=== PATIENT | female | born 1950 | race Caucasian/White ===

== ENCOUNTER → 2017-11-15 | Outpatient (CLI) | payer MEDICARE ==
--- NOTE | 2017-11-15 20:49 | MR ---
EXAMINATION TYPE: MR brain wo/w con DATE OF EXAM: 11/15/2017 COMPARISON: None HISTORY: Altered mental status /Visual changes CONTRAST: Performed utilizing 9 mL intravenous Gadavist gadolinium contrast. TECHNIQUE: Multiplanar, multiecho imaging on a 3.0 Tana magnet is performed through the brain. Stud y is performed within 24 hours of arrival to the hospital. The craniovertebral junction is normal. The pituitary is normal. Diffusion-weighted imaging is performed. No abnormal hyperintensity is present to suggest an acute i ntracranial infarct or acute ischemic change. There is hyperintensity within the brainstem. Periventricular white matter hyperintensity is present on FLAIR and T2-weighted images. This is partially confluent. On T2-weighted images there is a focus of hyperintensity within the left centrum semiovale. This is h ypointense on T1-weighted images and nonenhancing. A small lacunar infarct could be considered. No abnormal enhancement is evident. Ventricles and sulci are appropriate for the patient age. IMPRESSIONS: 1. Partially confluent Periventricular white matter and deep white matter hyperintensities compatible with chronic appearing microvascular ischemic change. 2. A tiny old lacunar infarct may be within the left centrum semiovale.
== END ==
LOC: RADMRIMAIN 17:53
PROVIDERS: ATTEND Family Medicine
DX: R90.89 Other abnormal findings on diagnostic imaging of central nervous system (principal); I67.82 Cerebral ischemia
CPT/HCPCS: 82565; 70553; 36415; A9581

== ENCOUNTER → 2018-04-06 | Outpatient (CLI) | payer MEDICARE ==
--- NOTE | 2018-04-09 13:14 | MM ---
Reason for exam: screening (asymptomatic). Last mammogram was performed 1 year and 5 months ago. History: Patient is postmenopausal. Physical Findings: A clinical breast exam by your physician is recommended on an annual basis and results should be correlated with mammographic findings. MG Screening Mammo w CAD Bilateral CC and MLO view(s) were taken. Prior study comparison: November 17, 2016, bilateral MG screening mammo w CAD. August 18, 2015, bilateral MG screening mammo w CAD. The breast tissue is almost entirely fat. Finding: There are typically benign round, diffuse/scattered calcifications in both breasts. No significant changes in finding since August 18, 2015 and November 17, 2016. ASSESSMENT: Benign, BI-RAD 2 RECOMMENDATION: Routine screening mammogram of both breasts in 1 year.
== END | disposition home or self-care (01) ==
LOC: RADMAMWWP 16:19
PROVIDERS: ATTEND Family Medicine
DX: Z12.31 Encounter for screening mammogram for malignant neoplasm of breast (principal)
CPT/HCPCS: 77067

== ENCOUNTER → 2020-09-29 | Outpatient (CLI) | payer MEDICARE ==
[~2020-09-29] MED LIST: REGADENOSON 0.4 MG/5 ML SYRINGE IV PRN
--- NOTE | 2020-09-29 16:05 | EST ---
EXERCISE STRESS DATE OF SERVICE: 09/29/20 AGE: 70 SEX: F HT: 5'5" WT: 220 lbs. PROTOCOL: Lexiscan STAGE: NA DURATION OF EXERCISE: NA HEART RATE REST: 65 BLOOD PRESSURE REST: 138/62 MAXIMUM HEART RATE ACHIEVED: 83 MAXIMUM BLOOD PRESSURE: 142/57 85% MPHR: 128 100% MPHR: 150 METS: NA RESULTS: Baseline rhythm is sinus mechanism, rate of 65, normal axis and intervals, nonspecific ST-T wave changes. Baseline blood pressure 138/62 mmHg. The patient received an injection of Lexiscan. Electrocardiograph monitoring revealed no evidence of diagnostic ischemic ST deviation. Cardiolite was injected per protocol. CONCLUSION: 1. Nondiagnostic electrocardiograph stress testing. 2. Nuclear images will be reported separately. MMODL / IJN: [id number] /
== END | disposition home or self-care (01) ==
LOC: RADNMMAIN 07:59
PROVIDERS: ATTEND Family Medicine
DX: R07.9 Chest pain, unspecified (principal); I10 Essential (primary) hypertension
CPT/HCPCS: 93017; 78452; A9500; J2785

== ENCOUNTER → 2020-10-06 | Outpatient (CLI) | payer MEDICARE ==
[2020-10-06 13:33] VITALS: BP 165/98; PULSE 62; RESP 16; TEMP 98.4; BMI 37.5
--- NOTE | 2020-10-06 14:50 | P.BASOAP ---
Subjective Progress Note Date: 10/06/20 Principal diagnosis: Morbid obesity Patient returns for reevaluation. He hasn't been seen for quite some time. Patient is interested in increasing filled to her band. Notices decreased restriction. She is not sure how much is in the band. No nausea or vomiting. Objective - Vital Signs Vital signs: Vital Signs Temp 98.4 F 10/06/20 13:31 Pulse 62 10/06/20 13:31 Resp 16 10/06/20 13:31 BP 165/98 10/06/20 13:31 Pulse Ox Intake & Output 10/05/20 10/06/20 10/06/20 18:59 06:59 18:59 Weight 102.512 kg - Exam Abdomen: Soft, nontender, nondistended Assessment/Plan (1) Morbid obesity Narrative/Plan: Patient doing well at this time. Continue dietary and exercise regimen. Patient would like more fluid added to the band. Band was accessed sterilely. 7 mL was present. Will add 0.3 for a total of 7.3 mL. Plan: Date: 10/06/20 Initial Weight: 120.656 kg Initial BMI: 44.2 Current Weight: 102.512 kg Current BMI: 37.5 Type of Surgery: Total Volume in Band: Previous Volume: Volume Removed: Volume Added: Band Size:
== END | disposition home or self-care (01) ==
LOC: BARWHC3 13:03
PROVIDERS: ATTEND Surgery
DX: E66.01 Morbid (severe) obesity due to excess calories (principal); Z68.37 Body mass index [BMI] 37.0-37.9, adult
CPT/HCPCS: 99212

== ENCOUNTER → 2020-10-12 | Outpatient (CLI) | payer MEDICARE ==
[2020-10-12 16:10] LABS: HCT 40.3 % (34.0-46.0); HGB 13.3 gm/dL (11.4-16.0); MCH 30.8 pg (25.0-35.0); MCHC 33.1 g/dL (31.0-37.0); MCV 93.1 fL (80.0-100.0); Mean Platelet Volume 7.5; Platelet Count 359 k/uL (150-450); RBC 4.33 m/uL (3.80-5.40); RDW 14.6 % (11.5-15.5); WBC 6.2 k/uL (3.8-10.6)
[2020-10-12 16:21] LABS: Potassium 4.3 mmol/L (3.5-5.1)
== END | disposition home or self-care (01) ==
LOC: LABPAT 15:28
PROVIDERS: ATTEND Internal Medicine Interventional Cardiology
DX: Z01.812 Encounter for preprocedural laboratory examination (principal); R94.39 Abnormal result of other cardiovascular function study
CPT/HCPCS: 80051; 82565; 84520; 85027

== ENCOUNTER 2020-10-16 07:44 | Day surgery (SDC) | payer MEDICARE ==
[2020-10-13 08:12] VITALS: BMI 36.6
[~2020-10-16 07:44] MED LIST changes: +ALPRAZolam 0.25 MG TAB PO PRN; +ALPRAZolam 0.5 MG TAB PO PRN; +ASPIRIN 325 MG TAB PO ONE; +HEPARIN SODIUM,PORCINE 10,000 UNIT in SODIUM CHLORIDE 0.9% 1,000 ML IRRIGATION PRN; +HEPARIN SODIUM,PORCINE 2,500 UNIT in SODIUM CHLORIDE 0.9% 250 ML IRRIGATION PRN; +NITROGLYCERIN SL TABS 0.4 MG TAB SUBLINGUAL PRN; -REGADENOSON 0.4 MG/5 ML SYRINGE IV PRN; +SODIUM CHLORIDE 0.9% 1,000 ML in EMPTY BAG 1 BAG IV ONE
[2020-10-16 08:14] VITALS: RESP 16; TEMP 98.3
[2020-10-16] MEDS ORDERED: MIDAZOLAM 2 MG/2 ML VIAL IVP ONE (09:31)
[2020-10-16] MEDS ORDERED: fentaNYL (PF) 50 MCG/ML 2 ML AMP IVP ONE (09:31)
[2020-10-16] MEDS ORDERED: LIDOCAINE 1% INJ 10MG/ML (20 ML MDV) SQ ONE (09:36)
[2020-10-16] MEDS ORDERED: VERAPAMIL SYRINGE (5 MG/10 ML) INTRAARTER ONE (09:38)
[2020-10-16] MEDS ORDERED: HEPARIN SODIUM 1,000 UN/ML (10ML VL) IV ONE (09:42)
[2020-10-16] MEDS ORDERED: IOPAMIDOL-370 125ML BTL INJ ONE (09:47)
[2020-10-16] MEDS ORDERED: RX INFO: IV CONTRAST WAS GIVEN 1 EACH MISC MISCELLANE PRN (10:02)
[2020-10-16] MEDS ORDERED: SODIUM CHLORIDE 0.9% 1,000 ML IV SCH (10:15)
--- NOTE | 2020-10-16 10:38 | P.CARDCATH ---
Date of Procedure: 10/16/20 Preoperative Diagnosis: Chest pain and shortness of breath Postoperative Diagnosis: Normal coronary arteries. Elevated end-diastolic pressure Procedure(s) Performed: Left heart catheterization with selective coronary arteriography and without left ventriculography Description of Procedure: HISTORY: This is a 70-year-old female who was referred by Dr. Muir for cardiac catheterization because of exertional chest pain and shortness of breath. CONSENT:I have discussed the risks, benefits and alternative therapies for the above-mentioned procedure and for both sedation/analgesia as well as necessary blood product administration, if indicated, as they pertain to this patient. The patient has indicated understanding and acceptance of the risks and procedures discussed. PROCEDURE: Patient was brought to the lab in a fasting state. Patient was given some IV sedation. The right wrist is infiltrated with lidocaine and right radial artery was entered using Seldinger technique. A 6-[place] catheter was left in place and selective coronary arteriography was performed. Patient tolerated the procedure well. TR band was applied for hemostasis. No immediate complications were noted and patient was transferred to [facility] in a stable condition Conscious Sedation: Versed 1mg Fentanyl 25 g Duration 14 minutes HEMODYNAMICS: . The aortic pressure is about 110/70. Left ventricle end- diastolic pressure is about 20. There was no gradient across the aortic valve SELECTIVE CORONARY ARTERIOGRAPHY: LEFT MAIN: Short and free of occlusive disease THE LEFT ANTERIOR DESCENDING CORONARY ARTERY: . Moderate caliber vessel which wraps around the apex. Gives moderate caliber diagonal and septal branches. The LAD and branches are free of occlusive disease THE LEFT CIRCUMFLEX AND IS CORONARY ARTERY: . This is a dominant vessel giving rise to PDA and also OM branches. Free of any occlusive disease THE RIGHT CORONARY ARTERY: . Non- dominant vessel. Free of occlusive disease LEFT VENTRICULOGRAPHY: Not performed FINAL IMPRESSION: . Normal coronary arteries. Elevated end-diastolic pressure PLAN: . Continue medical therapy and this factor modification PROGNOSIS:Good
[2020-10-16 15:21] VITALS: BP 127/57; PULSE 62
== END 2020-10-16 14:57 | disposition home or self-care (01) ==
LOC: CATHCVL 07:44
PROVIDERS: ATTEND Internal Medicine Cardiovascular Disease
DX: R07.9 Chest pain, unspecified (principal); R06.02 Shortness of breath
CPT/HCPCS: 93458; C1894; C1769; J2250; J2001; J3010; J1644; Q9967

== ENCOUNTER 2022-02-05 10:44 | Emergency (ER) | payer MEDICARE ==
[2022-02-05 10:52] VITALS: PULSE 98; TEMP 98.9
[2022-02-05] MEDS ORDERED: ALBUTEROL HFA INHALER INHALATION STA (11:24)
--- NOTE | 2022-02-05 11:49 | XR ---
EXAMINATION TYPE: XR chest 2V DATE OF EXAM: 02/05/2022 COMPARISON: NONE HISTORY: Shortness of breath TECHNIQUE: Frontal and lateral views of the chest are obtained. FINDINGS: Scattered senescent parenchymal changes noted. Hyperinflation compatible with COPD. No evidence for infiltrate. No evidence for atelectasis. Cardiomegaly with pulmonary venous congestion. No evidence for overt failure.. Mediastinal structures are stable and grossly unremarkable. No evidence for hilar prominence. Degenerative changes dorsal spine. IMPRESSION: 1. Cardiomegaly with pulmonary venous congestion. No evidence for overt failure..
[2022-02-05 11:51] VITALS: RESP 16
--- NOTE | 2022-02-05 13:47 | ED ---
URI HPI - General Chief Complaint: Upper Respiratory Infection Stated Complaint: fever Time Seen by Provider: 02/05/22 11:03 Source: patient Mode of arrival: ambulatory Limitations: no limitations - History of Present Illness Initial Comments: Patient is a 71-year-old female presenting with chief complaint of cough and subjective fever. Patient states that symptoms started yesterday. She did not check her temperature but states she felt very warm. She admits to congestion and some minor nausea. Admits to fatigue. No chest pain, difficulty breathing, abdominal pain, vomiting, headache, vision or hearing changes, neck pain or stiffness, palpitations, weakness. - Related Data Home Medications Medication Instructions Recorded Confirmed Aspirin 81 mg PO DAILY 07/18/13 10/16/20 Citalopram Hydrobromide 20 mg PO DAILY 07/18/13 10/16/20 [Citalopram HBr] Lisinopril 10 mg PO DAILY 07/18/13 10/16/20 lamoTRIgine 100 mg PO HS 07/18/13 10/16/20 QUEtiapine [SEROquel] 100 mg PO HS 10/08/20 10/16/20 Alendronate Sodium [Fosamax] 70 mg PO SA 10/13/20 10/16/20 Metoprolol Tartrate [Lopressor] 50 mg PO DAILY 10/13/20 10/16/20 Pantoprazole Sodium [Protonix] 40 mg PO DAILY 10/13/20 10/16/20 Rosuvastatin [Crestor] 20 mg PO DAILY 10/13/20 10/16/20 Sucralfate [Carafate] 1 gm PO BID 10/13/20 10/16/20 rOPINIRole HCL [Requip] 0.5 mg PO HS 10/13/20 10/16/20 Allergies Allergy/AdvReac Type Severity Reaction Status Date / Time No Known Allergies Allergy Verified 02/05/22 10:52 Review of Systems ROS Statement: Those systems with pertinent positive or pertinent negative responses have been documented in the HPI. ROS Other: All systems not noted in ROS Statement are negative. Past Medical History Past Medical History: Hypertension, Sleep Apnea/CPAP/BIPAP History of Any Multi-Drug Resistant Organisms: None Reported Past Surgical History: Bariatric Surgery, Cholecystectomy Additional Past Surgical History / Comment(s): lap band 2014 Past Anesthesia/Blood Transfusion Reactions: No Reported Reaction Past Psychological History: No Psychological Hx Reported Smoking Status: Never smoker, Unknown if ever smoked Past Alcohol Use History: None Reported Past Drug Use History: None Reported General Exam Limitations: no limitations General appearance: alert, in no apparent distress Head exam: Present: atraumatic, normocephalic, normal inspection Eye exam: Present: normal appearance, PERRL, EOMI. Absent: scleral icterus, conjunctival injection, periorbital swelling ENT exam: Present: normal exam, normal oropharynx, mucous membranes moist, TM's normal bilaterally Neck exam: Present: normal inspection, full ROM Respiratory exam: Present: normal lung sounds bilaterally. Absent: respiratory distress, wheezes, rales, rhonchi, stridor Cardiovascular Exam: Present: regular rate, normal rhythm, normal heart sounds. Absent: systolic murmur, diastolic murmur, rubs, gallop, clicks Neurological exam: Present: alert, oriented X3, CN II-XII intact Psychiatric exam: Present: normal affect, normal mood Skin exam: Present: warm, dry, intact, normal color. Absent: rash Course Vital Signs 02/05/22 02/05/22 02/05/22 10:49 11:50 13:50 Temperature 98.9 F 98.9 F Pulse Rate 98 98 Respiratory 18 16 16 Rate O2 Sat by Pulse 98 98 Oximetry Medical Decision Making - Medical Decision Making Patient is a 71-year-old female presenting with chief complaint of subjective fever, cough, and fatigue. Symptoms started yesterday. Patient has been taking Tylenol for her symptoms. On examination heart and lungs are clear to auscultation and there is normal HEENT exam. Patient tested positive for influenza A. Chest x-ray shows cardiomegaly with pulmonary venous congestion, there is no evidence of overt heart failure. This is confirmed by my inter pretation. I conveyed these findings to the patient, I expressed that we would need to do further testing including a BNP to check for heart failure. Patient is refusing testing at this time. I further explained to her the findings and the importance of further testing at this time, patient continued to decline further testing. She is of sound mind and body and can't make her own decisions. I explained to her that if symptoms worsen she must report back to the ER and further workup would be initiated at that time, she conveyed verbal understanding. Educated on supportive treatment with Motrin, Tylenol, rest, and hydration. Follow-up with PCP. Report back to ER with any new or worsening symptoms. Discussed return parameters and answered all questions. Patient conv eyed verbal understanding and agreed to the plan. I discussed this case in detail with my attending Dr. Blankenship - Lab Data Lab Results 02/05/22 Range/Units 12:11 Influenza Type A (PCR) Detected A (Not Detectd) Influenza Type B (PCR) Not Detected (Not Detectd) RSV (PCR) Not Detected (Not Detectd) SARS-CoV-2 (PCR) Not Detected (Not Detectd) Disposition Clinical Impression: Influenza Disposition: HOME SELF-CARE Condition: Good Instructions (If sedation given, give patient instructions): Influenza (ED) Additional Instructions: Follow-up with PCP. Report back to ER with any new or worsening symptoms. Is patient prescribed a controlled substance at d/c from ED?: No Referrals: Gloria Martinez DO [Primary Care Provider] - 1-2 days Time of Disposition: 13:46
== END 2022-02-05 13:50 | disposition home or self-care (01) ==
LOC: EC 10:44
DX: J10.1 Influenza due to other identified influenza virus with other respiratory manifestations (principal); I10 Essential (primary) hypertension; Z79.82 Long term (current) use of aspirin; Z79.899 Other long term (current) drug therapy; Z20.822 Contact with and (suspected) exposure to COVID-19
CPT/HCPCS: 71046; 87636; 99283; 99284

== ENCOUNTER → 2022-08-18 | Outpatient (CLI) | payer MEDICARE ==
--- NOTE | 2022-08-19 20:20 | MM ---
Reason for Exam: Screening (asymptomatic). Last mammogram was performed 4 year(s) and 4 month(s) ago. Patient History: Menarche at age 11. First Full-Term at age 19. Postmenopausal. Risk Values: Ginger 5 year model risk: 1.4%. NCI Lifetime model risk: 3.6%. Prior Study Comparison: 08/18/2015 Bilateral Screening Mammogram, [facility]. 11/17/2016 Bilateral Screening Mammogram, [facility]. 04/06/2018 Bilateral Screening Mammogram, [facility]. Tissue Density: There are scattered fibroglandular densities. Findings: Analyzed By CAD. Scattered benign round and secretory calcifications. There is no suspicious group of microcalcifications or new suspicious mass in either breast. Overall Assessment: Benign, BI-RAD 2 Management: Screening Mammogram of both breasts in 1 year. . Patient should continue monthly self-breast exams. A clinical breast exam by your physician is recommended on an annual basis. This exam should not preclude additional follow-up of suspicious palpable abnormalities. Note on Ginger scores and lifetime risk: 1. A Ginger score greater than 3% is considered moderate risk. If this is the case, consider specialist referral to assess eligibility for a risk reducing agent. 2. If overall lifetime risk for the development of breast cancer is 20% or higher, the patient may qualify for future screening with alternating mammogram and breast MRI. Electronically signed and approved by: Svitlana Dos Santos M.D. Radiologist
== END | disposition home or self-care (01) ==
LOC: RADMAMWWP 14:46
PROVIDERS: ATTEND Family Medicine
DX: Z12.31 Encounter for screening mammogram for malignant neoplasm of breast (principal); Z78.0 Asymptomatic menopausal state
CPT/HCPCS: 77063; 77067

== ENCOUNTER → 2022-09-27 | Outpatient (CLI) | payer MEDICARE ==
[2022-09-27 13:13] VITALS: BP 185/79; PULSE 84; RESP 16; TEMP 98.3; BMI 36.9
--- NOTE | 2022-09-27 17:47 | P.BASOAP ---
Subjective Progress Note Date: 09/27/22 Principal diagnosis: Morbid obesity Patient doing well today. Patient has lost 4 pounds since her last visit in 2020. Says she was down more than that but recently has noticed a decreased restriction. Wants an adjustment. No dysphagia. No significant reflux. Objective - Vital Signs Vital signs: Vital Signs Temp 98.3 F 09/27/22 13:11 Pulse 84 09/27/22 13:11 Resp 16 09/27/22 13:11 BP 185/79 09/27/22 13:11 Pulse Ox FiO2 Intake & Output 09/26/22 09/27/22 09/27/22 18:59 06:59 18:59 Weight 100.698 kg - Exam Abdomen: Soft, nontender, nondistended Assessment/Plan (1) Morbid obesity Narrative/Plan: Patient doing well at this time. Wants more fluid added to her band. We will add 0.3. Her band was sterilely access. 0.3 mL saline was added for a total of 7.6 mL. Follow-up 2 months. Plan: Date: 09/27/22 Initial Weight: 120.656 kg Initial BMI: 44.2 Current Weight: 100.698 kg Current BMI: 36.9 Type of Surgery: Adjustable Gastric Banding Total Volume in Band: 7.3 Previous Volume: Volume Removed: Volume Added: Band Size:
== END ==
LOC: BARWHC3 12:49
PROVIDERS: ATTEND Surgery
DX: E66.01 Morbid (severe) obesity due to excess calories (principal); Z68.36 Body mass index [BMI] 36.0-36.9, adult
CPT/HCPCS: 99212

== ENCOUNTER → 2023-03-13 | Outpatient (CLI) | payer MEDICARE ==
[2023-03-13 19:48] LABS: HCT 40.4 % (37.2-46.3); HGB 13.1 g/dL (12.0-15.0); MCH 29.8 pg (27.0-32.0); MCHC 32.4 g/dL (32.0-37.0); Mean Platelet Volume 9.9 FL (9.5-12.2); NRBC Per 100 WBC 0 X 10*3/uL (0.00-0.01); Platelet Count 380 X 10*3/uL (140-440); RBC 4.39 X 10*6/uL (4.10-5.20); RDW 14.2 % (11.5-14.5); WBC 7.68 X 10*3/uL (4.50-10.00)
[2023-03-13 20:35] LABS: Blood Urea Nitrogen 17.5 mg/dL (9.0-27.0); Carbon Dioxide 29.5 mmol/L (21.6-31.8); Chloride 99 mmol/L (96-109); Potassium 3.2 mmol/L (3.5-5.5); Sodium 143 mmol/L (135-145)
== END | disposition home or self-care (01) ==
LOC: LABPAT 13:59
PROVIDERS: ATTEND Internal Medicine Clinical Cardiac Electrophysiology
DX: Z01.812 Encounter for preprocedural laboratory examination (principal); I48.0 Paroxysmal atrial fibrillation
CPT/HCPCS: 36415; 80051; 82565; 84520; 85027

== ENCOUNTER 2023-03-20 15:34 | Emergency (ER) | payer MEDICARE ==
[2023-03-20 15:57] VITALS: TEMP 97.9
--- NOTE | 2023-03-20 16:00 | ED ---
General Adult HPI - General Stated complaint: Abn labs Time Seen by Provider: 03/20/23 15:57 Source: patient, RN notes reviewed Mode of arrival: ambulatory Limitations: no limitations - History of Present Illness Initial comments: 72 year old female presents to the emergency department for evaluation of sore throat and mild cough x 2 days. Patient sent in by Dr. Muir. She is scheduled for an ablation tomorrow. She reports over the weekend she developed upper respiratory symptoms. She advised her radon inspector of these symptoms and he wanted her to be evaluated as she has a procedure scheduled for tomorrow. She denies recent fever, chills, nausea, vomiting. - Related Data Allergies Allergy/AdvReac Type Severity Reaction Status Date / Time No Known Allergies Allergy Verified 03/20/23 15:53 Review of Systems ROS Statement: Those systems with pertinent positive or pertinent negative responses have been documented in the HPI. ROS Other: All systems not noted in ROS Statement are negative. Past Medical History Past Medical History: Atrial Fibrillation, Hypertension History of Any Multi-Drug Resistant Organisms: None Reported Past Surgical History: Bariatric Surgery, Cholecystectomy Past Psychological History: No Psychological Hx Reported Smoking Status: Never smoker Past Alcohol Use History: None Reported Past Drug Use History: None Reported General Exam - General Exam Comments Initial Comments: Visual Physical Exam Vital signs reviewed General: Well-appearing, nontoxic, no acute distress. Head: Normocephalic, atraumatic Eyes: PERRLA, EOMI ENT: Airway patent Chest: Nonlabored breathing Skin: No visual rash, normal skin tone Neuro: Alert and oriented 3 Musculoskeletal: No gross abnormalities Limitations: no limitations General appearance: alert, in no apparent distress Head exam: Present: atraumatic, normocephalic, normal inspection Eye exam: Present: normal appearance, PERRL, EOMI. Absent: scleral icterus, conjunctival injection, periorbital swelling ENT exam: Present: normal exam, mucous membranes moist Neck exam: Present: normal inspection, full ROM. Absent: tenderness, meningismus, lymphadenopathy Respiratory exam: Present: normal lung sounds bilaterally. Absent: respiratory distress, wheezes, rales, rhonchi, stridor Cardiovascular Exam: Present: regular rate, normal rhythm, normal heart sounds. Absent: systolic murmur, diastolic murmur, rubs, gallop, clicks Extremities exam: Present: normal inspection, full ROM, normal capillary refill. Absent: tenderness, pedal edema, joint swelling, calf tenderness Back exam: Present: normal inspection Neurological exam: Present: alert, oriented X3 Psychiatric exam: Present: normal affect, normal mood Skin exam: Present: warm, dry, intact, normal color. Absent: rash Course Vital Signs 03/20/23 03/20/23 15:54 18:48 Temperature 97.9 F Pulse Rate 85 71 Respiratory 16 20 Rate Blood Pressure 125/60 144/64 O2 Sat by Pulse 96 97 Oximetry Medical Decision Making - Medical Decision Making Quick note preformed by Sherley Benton PA-C Was pt. sent in by a medical professional or institution (ANNAMARIE Martin, COMMERCIAL SALES DIRECTOR, urgent care, hospital, or residential...) When possible be specific @ -No Did you speak to anyone other than the patient for history (EMS, parent, family, police, friend...)? What history was obtained from this source @ -No Did you review nursing and triage notes (agree or disagree)? Why? @ -I reviewed and agree with nursing and triage notes Were old charts reviewed (outside hosp., previous admission, EMS record, old EKG, old radiological studies, urgent care reports/EKG's, residential records)? Report findings @ -No old charts were reviewed Differential Diagnosis (chest pain, altered mental status, abdominal pain women, abdominal pain men, vaginal bleeding, weakness, fever, dyspnea, syncope, headache, dizziness, GI bleed, back pain, seizure, CVA, palpatations, mental health, musculoskeletal)? @ -COVID, influenza, RSV, pneumonia, viral syndrome, bronchitis, this list is not all inclusive EKG interpreted by me (3pts min.). @ -None X-rays interpreted by me (1pt min.). @ -Chest x-ray shows no acute infiltrate CT interpreted by me (1pt min.). @ -None done U/S interpreted by me (1pt. min.). @ -None done What testing was considered but not performed or refused? (CT, X-rays, U/S, labs)? Why? @ -None What meds were considered but not given or refused? Why? @ -None Did you discuss the management of the patient with other professionals (professionals i.e. ANNAMARIE Martin, COMMERCIAL SALES DIRECTOR, lab, RT, psych nurse, social work msw, communications manager, teacher, division officer weapons department, manager of case management)? Give summary @ -Management discussed with Dr. Muir the patient's radon inspector. Patient currently scheduled for cardiac ablation tomorrow discussed with Dr. Muir and he is going to push to back the procedure based on the patient symptoms. He also discussed this with the patient Was smoking cessation discussed for >3mins.? @ -No Was critical care preformed (if so, how long)? @ -No Were there social determinants of health that impacted care today? How? (Homelessness, low income, unemployed, alcoholism, drug addiction, transportation, low edu. Level, literacy, decrease access to med. care, snf, rehab)? @ -No Was there de-escalation of care discussed even if they declined (Discuss DNR or withdrawal of care, Hospice)? DNR status @ -No What co-morbidities impacted this encounter? (DM, HTN, Smoking, COPD, CAD, Cancer, CVA, ARF, Chemo, Hep., AIDS, mental health diagnosis, sleep apnea, morbid obesity)? @ -A-fib Was patient admitted / discharged? Hospital course, mention meds given and route, prescriptions, significant lab abnormalities, going to OR and other pertinent info. @ -Discharged. Patient presented to the emergency department for evaluation of sore throat, cough x 2 days. Patient sent in by her radon inspector. COVID, influenza, RSV negative. Laboratory studies obtained which shows normal white count at 7.3. Findings discussed with Dr. Muir. He is going to push back the patient's procedure about 1 to 2 weeks. He also discussed this with the patient. Patient will be discharged home with follow-up to her radon inspector. Patient understanding agreeable with plan. Patient stable at time of discharge. Case discussed with Dr. Schuster. Undiagnosed new problem with uncertain prognosis? @ -No Drug Therapy requiring intensive monitoring for toxicity (Heparin, Nitro, Insulin, Cardizem)? @ -No Were any procedures done? @ -No Diagnosis/symptom? @ -Viral URI Acute, or Chronic, or Acute on Chronic? @ -Acute Uncomplicated (without systemic symptoms) or Complicated (systemic symptoms)? @ -Uncomplicated Side effects of treatment? @ -No Exacerbation, Progression, or Severe Exacerbation? @ -No Poses a threat to life or bodily function? How? (Chest pain, [place], [place], pneumonia, PE, COPD, DKA, ARF, appy, cholecystitis, CVA, Diverticulitis, Homicidal, Suicidal, threat to staff... and all critical care pts) @ -No - Lab Data Result diagrams: 03/20/23 16:46 03/20/23 16:46 Lab Results 03/20/23 03/20/23 03/20/23 Range/Units 16:46 16:46 16:46 WBC 7.3 (3.8-10.6) k/uL RBC 4.42 (3.80-5.40) m/uL Hgb 13.1 (11.4-16.0) gm/dL Hct 40.7 (34.0-46.0) % MCV 92.0 (80.0-100.0) fL MCH 29.6 (25.0-35.0) pg MCHC 32.2 (31.0-37.0) g/dL RDW 13.9 (11.5-15.5) % Plt Count 350 (150-450) k/uL MPV 7.3 Neutrophils % 69 % Lymphocytes % 23 % Monocytes % 4 % Eosinophils % 3 % Basophils % 1 % Neutrophils # 5.0 (1.3-7.7) k/uL Lymphocytes # 1.6 (1.0-4.8) k/uL Monocytes # 0.3 (0-1.0) k/uL Eosinophils # 0.2 (0-0.7) k/uL Basophils # 0.0 (0-0.2) k/uL Sodium 141 (137-145) mmol/L Potassium 3.6 (3.5-5.1) mmol/L Chloride 106 (98-107) mmol/L Carbon Dioxide 27 (22-30) mmol/L Anion Gap 8 mmol/L BUN 20 H (7-17) mg/dL Creatinine 1.01 (0.52-1.04) mg/dL Est GFR (CKD-EPI)AfAm 64 (>60 ml/min/1.73 sqM) Est GFR (CKD-EPI)NonAf 56 (>60 ml/min/1.73 sqM) Glucose 107 H (74-99) mg/dL Calcium 9.7 (8.4-10.2) mg/dL Total Bilirubin 0.4 (0.2-1.3) mg/dL AST 18 (14-36) U/L ALT 14 (4-34) U/L Alkaline Phosphatase 72 (38-126) U/L Total Protein 6.5 (6.3-8.2) g/dL Albumin 3.6 (3.5-5.0) g/dL Influenza Type A (PCR) Not Detected (Not Detectd) Influenza Type B (PCR) Not Detected (Not Detectd) RSV (PCR) Not Detected (Not Detectd) SARS-CoV-2 (PCR) Not Detected (Not Detectd) Disposition Clinical Impression: Upper respiratory infection Disposition: HOME SELF-CARE Condition: Stable Instructions (If sedation given, give patient instructions): Upper Respiratory Infection (ED) Additional Instructions: Please follow up with Dr. Muir. Return to the emergency department for new or worsening symptoms. Is patient prescribed a controlled substance at d/c from ED?: No Referrals: Gloria Martinez, [Primary Care Provider] - 1-2 days
--- NOTE | 2023-03-20 16:57 | XR ---
EXAMINATION TYPE: XR chest 2V DATE OF EXAM: 03/20/2023 COMPARISON: None INDICATION: Chest Pain abnormal labs TECHNIQUE: Single frontal view of the chest is obtained. FINDINGS: The heart size is normal. The pulmonary vasculature is normal. The lungs are clear. IMPRESSION: 1. No acute pulmonary process.
[2023-03-20 17:28] LABS: Basophils % (A) 1 %; Eosinophils # (A) 0.2 k/uL (0-0.7); Eosinophils % (A) 3 %; HCT 40.7 % (34.0-46.0); HGB 13.1 gm/dL (11.4-16.0); Lymphocytes # (A) 1.6 k/uL (1.0-4.8); Lymphocytes % (A) 23 %; MCH 29.6 pg (25.0-35.0); MCHC 32.2 g/dL (31.0-37.0); Mean Platelet Volume 7.3; Monocytes # (A) 0.3 k/uL (0-1.0); Monocytes % (A) 4 %; Neutrophils % (A) 69 %; Platelet Count 350 k/uL (150-450); RBC 4.42 m/uL (3.80-5.40); RDW 13.9 % (11.5-15.5); WBC 7.3 k/uL (3.8-10.6)
[2023-03-20 17:42] LABS: ALT 14 U/L (4-34); AST 18 U/L (14-36); African American GFR (CKD) 64 (>60 ml/min/1.73 sqM); Albumin 3.6 g/dL (3.5-5.0); Alkaline Phosphatase 72 U/L (38-126); Anion Gap 8 mmol/L; Blood Urea Nitrogen 20 mg/dL (7-17); Calcium 9.7 mg/dL (8.4-10.2); Carbon Dioxide 27 mmol/L (22-30); Chloride 106 mmol/L (98-107); Glucose 107 mg/dL (74-99); Non-African American GFR(CKD) 56 (>60 ml/min/1.73 sqM); Potassium 3.6 mmol/L (3.5-5.1); Sodium 141 mmol/L (137-145); Total Bilirubin 0.4 mg/dL (0.2-1.3); Total Protein 6.5 g/dL (6.3-8.2)
[2023-03-20 19:05] VITALS: BP 144/64; PULSE 71; RESP 20
== END 2023-03-20 18:50 | disposition home or self-care (01) ==
LOC: EC 15:34 → MERGE 15:34 → EC 18:50
DX: J06.9 Acute upper respiratory infection, unspecified (principal); I10 Essential (primary) hypertension; I48.91 Unspecified atrial fibrillation; Z90.49 Acquired absence of other specified parts of digestive tract; Z20.822 Contact with and (suspected) exposure to COVID-19
CPT/HCPCS: 36415; 71046; 80053; 85025; 87636; 99283

== ENCOUNTER → 2023-05-22 | Outpatient (CLI) | payer MEDICARE ==
[2023-05-22 09:49] LABS: African American GFR (CKD) 56 (>60 ml/min/1.73 sqM); Blood Urea Nitrogen 21 mg/dL (7-17); Non-African American GFR(CKD) 49 (>60 ml/min/1.73 sqM)
--- NOTE | 2023-05-29 14:46 | CT ---
EXAMINATION TYPE: CT abdomen pelvis wo/w con CT DLP: 2982 mGycm, Automated exposure control for dose reduction was used. DATE OF EXAM: 05/22/2023 11:20 AM COMPARISON: None. CLINICAL INDICATION:Female, 73 years old with history of N95.0 POST GOLDEN BLEEDING R31.9 HEMATURIA; po st menopausal bleeding; HEMATURIA TECHNIQUE: Axial CT of the abdomen and pelvis was performed both without and with IV contrast. Sagit deborah and coronal reformats were created on a separate workstation. Contrast used:80ml mL of Isovue 300 without and with IV Contrast, (none if empty) Oral contrast used: with Oral Contrast FINDINGS: LOWER CHEST: Lung bases are clear. Heart size upper normal. ABDOMEN LIVER: Tiny hypodensity in the lateral left lobe, too small to characterize but statistically benign. GALLBLADDER AND BILE DUCTS: The gallbladder is surgically absent. Biliary tree does not appear pathol ogically dilated. PANCREAS: Fatty infiltrated without acute finding SPLEEN: Unremarkable. ADRENAL GLANDS: Unremarkable. KIDNEYS AND URETERS: No evidence of urinary tract calculi or hydronephrosis. Kidneys enhance symmetri marcia without evidence of mass. There is a 3.8 cm right renal cyst mildly prominent extrarenal pelves bilaterally. PELVIS BLADDER: Completely decompressed, and remains decompressed on the later phase images without signific ant contrast yet in its lumen. REPRODUCTIVE: Not well evaluated by CT. However the uterus is present and has a grossly unremarkable CT appearance without visible central uterine hypoattenuation to suggest pathology. There are small s oft tissue densities in the bilateral pelvis, likely normal-sized ovaries. No suggestion of pelvic ma ss. ABDOMEN & PELVIS STOMACH AND BOWEL: There is a lap band in place about the proximal stomach. Mildly thickened appearan ce of the distal esophagus above this. There is little residual contrast material seen in the esophag us, most of which has passed the lap band and is present in the stomach and multiple small bowel loop s without evidence of obstruction. Contrast is reaching the descending colon. There is fatty infiltra tion of the ileocecal valve. Cecum appears somewhat patulous. Appendix is not readily identified. No focal inflammatory process is seen. Moderate stool throughout the colon. Proximally there are some sc attered diverticula, and their number and concentration increase continuing distally.. No evidence o f diverticulitis. PERITONEUM/RETROPERITONEUM: No evidence of pneumoperitoneum or free fluid. VASCULATURE: Mild atherosclerotic calcifications are present throughout the abdominal aorta and its b ranches. No evidence of aortic aneurysm. There is focal calcification at the ostium of the celiac art marquise and to a lesser degree superior mesenteric artery, which originate fairly close to one another. A ppearance at this time suggests moderate stenosis of the celiac and mild stenosis of the SMA. The ashwin ateral renal arteries appear patent as does the SONDRA. Bifurcation and bilateral iliac arterial trees a re patent. Portal veins are enhancing. Splenic vein is patent. LYMPH NODES: No enlarged lymph nodes. SOFT TISSUE/ABDOMINAL WALL: Unremarkable MUSCULOSKELETAL: No acute osseous abnormalities. Mild/moderate chronic degenerative changes of the s pine. IMPRESSION: 1. No acute abnormality demonstrated to explain the patient's symptoms. If there is further clinical concern, pelvic ultrasound may be considered. 2. Gastric lap band in place. 3. No evidence of bowel obstruction, free fluid or free air. Normal appendix.
== END | disposition home or self-care (01) ==
LOC: RADCTMAIN 08:49
PROVIDERS: ATTEND Family Medicine
DX: N95.0 Postmenopausal bleeding (principal); R31.9 Hematuria, unspecified; R82.998 Other abnormal findings in urine; Z98.84 Bariatric surgery status
CPT/HCPCS: 82565; 84520; 74178; 36415; Q9967

== ENCOUNTER 2023-06-06 09:13 | Observation (INO) | payer MEDICARE ==
[~2023-06-06 09:13] MED LIST changes: -ALPRAZolam 0.25 MG TAB PO PRN; -ALPRAZolam 0.5 MG TAB PO PRN; -ASPIRIN 325 MG TAB PO ONE; -HEPARIN SODIUM,PORCINE 10,000 UNIT in SODIUM CHLORIDE 0.9% 1,000 ML IRRIGATION PRN; -HEPARIN SODIUM,PORCINE 2,500 UNIT in SODIUM CHLORIDE 0.9% 250 ML IRRIGATION PRN; +HYDROmorphone 0.5 MG/0.5 ML SYRINGE IVP PRN; -NITROGLYCERIN SL TABS 0.4 MG TAB SUBLINGUAL PRN; -SODIUM CHLORIDE 0.9% 1,000 ML in EMPTY BAG 1 BAG IV ONE
[2023-06-06] MEDS: SODIUM CHLORIDE 0.9% 1,000 ML IV ONE (09:30)
[2023-06-06 10:26] LABS: Basophils # (A) 0.1 k/uL (0-0.2); Basophils % (A) 1 %; Eosinophils # (A) 0.3 k/uL (0-0.7); Eosinophils % (A) 4 %; HCT 39.4 % (34.0-46.0); HGB 12.4 gm/dL (11.4-16.0); Lymphocytes # (A) 2.6 k/uL (1.0-4.8); Lymphocytes % (A) 38 %; MCH 28.8 pg (25.0-35.0); MCHC 31.6 g/dL (31.0-37.0); Mean Platelet Volume 7.4; Monocytes # (A) 0.3 k/uL (0-1.0); Monocytes % (A) 4 %; Neutrophils # (A) 3.5 k/uL (1.3-7.7); Neutrophils % (A) 52 %; Platelet Count 346 k/uL (150-450); RBC 4.33 m/uL (3.80-5.40); RDW 14.9 % (11.5-15.5); WBC 6.8 k/uL (3.8-10.6)
[2023-06-06] MEDS ORDERED: LIDOCAINE 1% INJ 10MG/ML (20 ML MDV) ONE ×2 (10:40→11:30)
[2023-06-06 11:09] LABS: ALT 20 U/L (4-34); AST 24 U/L (14-36); African American GFR (CKD) 71 (>60 ml/min/1.73 sqM); Albumin 3.7 g/dL (3.5-5.0); Alkaline Phosphatase 72 U/L (38-126); Anion Gap 8 mmol/L; Blood Urea Nitrogen 16 mg/dL (7-17); Calcium 8.9 mg/dL (8.4-10.2); Carbon Dioxide 27 mmol/L (22-30); Chloride 106 mmol/L (98-107); Glucose 96 mg/dL (74-99); Non-African American GFR(CKD) 62 (>60 ml/min/1.73 sqM); Potassium 3.8 mmol/L (3.5-5.1); Sodium 141 mmol/L (137-145); Total Bilirubin 0.4 mg/dL (0.2-1.3); Total Protein 6.7 g/dL (6.3-8.2)
[2023-06-06] MEDS ORDERED: MIDAZOLAM 2 MG/2 ML VIAL ONE (11:30)
[2023-06-06] MEDS ORDERED: PROPOFOL 10 MG/ML 20 ML VIAL IV ONE (11:30)
[2023-06-06] MEDS ORDERED: HEPARIN SODIUM,PORCINE 10,000 UNIT/ML 1 ML VIAL ONE (11:30)
[2023-06-06] MEDS ORDERED: ePHEDrine 50 MG/ML 1 ML VIAL ONE (11:30)
[2023-06-06] MEDS ORDERED: fentaNYL (PF) 50 MCG/ML 2 ML AMP ONE (11:30)
[2023-06-06] MEDS ORDERED: SUCCINYLCHOLINE CHLORIDE 200 MG/10 ML VIAL IV ONE (11:30)
[2023-06-06] MEDS ORDERED: ONDANSETRON 4 MG/2 ML VIAL ONE (11:30)
[2023-06-06] MEDS: HEPARIN SOD,PORK IN 0.45% NACL 25,000 UNIT in 0.45% NACL 1 250ML.BAG IV ONE (11:58)
[2023-06-06] MEDS: LIDOCAINE 1% INJ 10MG/ML (20 ML MDV) SQ ONE (12:04)
[2023-06-06] MEDS: IOPAMIDOL-370 100ML BTL INJ ONE (13:50)
--- NOTE | 2023-06-06 14:40 | P.HPCAR ---
History of Present Illness This is Dr. Muir dictating an H/P on this patient The patient was interviewed and examined IMPRESSION / ASSESSMENT: Paroxysmal atrial fibrillation with RVR after greater than 200 beats a minute Hypertension Elevated LVEDP Increased BMI PLAN: Proceed with PVI Continue Xarelto HPI Patient continues to have episodes of atrial fibrillation She continues to have shortness of breath with exertion Coronary arteries are normal There was no evidence for ischemia in the past She denies any recent syncope orthopnea PND or any respiratory symptoms ROS: No fever chills or rigors, no cough, phlegm or expectoration, no nausea, vomiting or diarrhea, no hematuria, dysuria, no musculoskeletal complaints, no strokes or seizures, no skin lesions. EXAMINATION: 130/69 mmHg afebrile pulse rate in the 60s sinus mechanism Heart sounds S1-S2 normal breath sounds are clear No lower extremity edema REVIEW OF LABS, ECG & MEDICAL DATA Hemoglobin 12.4 Electrolytes normal creatinine normal liver function normal TSH 6.0 Physical Exam Vitals: Vital Signs Temp Pulse Resp BP Pulse Ox 06/06/23 14:30 83 16 140/72 98 06/06/23 14:18 97.7 F 88 16 132/71 98 06/06/23 10:02 98.2 F 68 16 130/69 96 Intake and Output 06/05/23 06/06/23 06/06/23 22:59 06:59 14:59 Intake Total 570.5 Balance 570.5 Intake: IV 570.5 Other: Weight 101.8 kg Past Medical History Past Medical History: Atrial Fibrillation, Asthma, CVA/TIA, GERD/Reflux, Hyperlipidemia, Hypertension, Osteoarthritis (OA), Sleep Apnea/CPAP/BIPAP Additional Past Medical History / Comment(s): stroke 4-5 yrs ago no residuals. does not wear her cpap. CT for blood in urine.- no findings. ( 2 weeks [address] Muir H&P History of Any Multi-Drug Resistant Organisms: None Reported Past Surgical History: Bariatric Surgery, Cholecystectomy Additional Past Surgical History / Comment(s): lap band 2015, colonoscopy. Past Anesthesia/Blood Transfusion Reactions: No Reported Reaction Smoking Status: Never smoker - Past Family History Mother Family Medical History: CVA/TIA Father Family Medical History: CVA/TIA, Diabetes Mellitus Brother(s) Family Medical History: Cancer, Diabetes Mellitus Additional Family Medical History / Comment(s): lung cancer Physical Examination Vital Signs Temp Pulse Resp BP Pulse Ox 06/06/23 14:30 83 16 140/72 98 06/06/23 14:18 97.7 F 88 16 132/71 98 06/06/23 10:02 98.2 F 68 16 130/69 96 Intake and Output 06/05/23 06/06/23 06/06/23 22:59 06:59 14:59 Intake Total 570.5 Balance 570.5 Intake: IV 570.5 Other: Weight 101.8 kg Results 06/06/23 09:45 06/06/23 09:45 Cardiac Enzymes 06/06/23 Range/Units 09:45 AST 24 (14-36) U/L CBC 06/06/23 Range/Units 09:45 WBC 6.8 (3.8-10.6) k/uL RBC 4.33 (3.80-5.40) m/uL Hgb 12.4 (11.4-16.0) gm/dL Hct 39.4 (34.0-46.0) % Plt Count 346 (150-450) k/uL Comprehensive Metabolic Panel 06/06/23 Range/Units 09:45 Sodium 141 (137-145) mmol/L Potassium 3.8 (3.5-5.1) mmol/L Chloride 106 (98-107) mmol/L Carbon Dioxide 27 (22-30) mmol/L BUN 16 (7-17) mg/dL Creatinine 0.93 (0.52-1.04) mg/dL Glucose 96 (74-99) mg/dL Calcium 8.9 (8.4-10.2) mg/dL AST 24 (14-36) U/L ALT 20 (4-34) U/L Alkaline Phosphatase 72 (38-126) U/L Total Protein 6.7 (6.3-8.2) g/dL Albumin 3.7 (3.5-5.0) g/dL Current Medications Generic Name Dose Route Start Last Admin Trade Name Freq PRN Reason Stop Dose Admin Acetaminophen 650 mg 06/06/23 14:27 Acetaminophen Tab 325 Mg Tab PO Q6HR PRN Mild Pain (Scale 1 to 3) Aspirin 81 mg 06/07/23 09:00 Aspirin 81 Mg PO DAILY [facility] Atorvastatin Calcium 80 mg 06/07/23 09:00 Atorvastatin 80 Mg Tab PO DAILY [facility] Chlorthalidone 25 mg 06/07/23 09:00 Chlorthalidone 25 Mg Tab PO DAILY [facility] Citalopram Hydrobromide 20 mg 06/07/23 09:00 Citalopram Hydrobromide 20 Mg Tab PO DAILY [facility] Hydromorphone HCl 0.5 mg 06/06/23 07:00 Hydromorphone 0.5 Mg/0.5 Ml Syringe IVP 06/06/23 23:00 Q5M PRN Phase 1 or 2 - Pain Control Sodium Chloride 1,000 mls @ 20 mls/hr 06/06/23 05:51 Saline 0.9% IV 07/06/23 05:52 .Q24H ELIF Lactated Ringer's 1,000 mls @ 20 mls/hr 06/06/23 05:51 Lactated Ringers IV 07/06/23 05:52 .Q24H ELIF Acetaminophen 1,000 mg/ IV 100 mls @ 400 mls/hr 06/06/23 14:27 Solution IVPB 06/06/23 14:41 ONCE ONE Lamotrigine 100 mg 06/06/23 21:00 Lamotrigine 100 Mg Tab PO HS [facility] Lisinopril 5 mg 06/07/23 09:00 Lisinopril 5 Mg Tab PO DAILY [facility] Metoprolol Succinate 75 mg 06/07/23 09:00 Metoprolol Succinate (Er) 50 Mg Tab.Er.24h PO DAILY [facility] Pantoprazole Sodium 40 mg 06/07/23 07:30 Pantoprazole 40 Mg Tablet PO 0730 [facility] Quetiapine Fumarate 100 mg 06/06/23 21:00 Quetiapine 100 Mg Tab PO HS [facility] Raloxifene HCl 60 mg 06/07/23 09:00 Raloxifene 60 Mg Tab PO DAILY [facility] Rivaroxaban 20 mg 06/07/23 09:00 Rivaroxaban 20 Mg Tab PO DAILY [facility] Protocol Ropinirole HCl 0.5 mg 06/06/23 21:00 Ropinirole Hcl 0.25 Mg Tab PO HS [facility] Sodium Chloride 12 ml 06/06/23 14:27 Sodium Chloride 0.9% Flush 10 Ml Syringe IV Q12HR PRN Line Flush Intake and Output 06/05/23 06/06/23 06/06/23 22:59 06:59 14:59 Intake Total 570.5 Balance 570.5 Intake: IV 570.5 Other: Weight 101.8 kg Patient Weight 06/07/23 06:59 Weight 101.8 kg 06/06/23 09:45 06/06/23 09:45
--- NOTE | 2023-06-06 14:48 | P.EPPROC ---
- EP Procedure Note Electrophysiology Procedure Note: PROCEDURE A. fib ablation with PVI DIAGNOSIS Paroxysmal atrial fibrillation, symptomatic, refractory to therapy RESULT No left atrial appendage mass seen on intracardiac echo, normal LV function Successful A. 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 Patient brought to the EP lab. General anesthesia given. Heparin administered. A city maintained above 300 seconds Both groins prepped and draped per protocol and venous sheaths placed. Esophagus intubated, circa catheter for temperature monitoring an endoscope for possible esophageal deflection. Phrenic nerve monitoring performed. Esophageal temperature monitoring performed . Esophageal deflection performed if circa catheter overlapping with the balloon or circa temperature less than 27.5C Intracardiac echocardiography performed. Pericardium evaluated. Left atrial a ppendage evaluated. Left atrium evaluated along with pulmonary veins Transseptal catheterization performed under fluoroscopic guidance and intracardiac echo guidance Cryoablation sheath exchanged, balloon catheter along with achieve catheter placed in the left atrium. Pulmonary veins isolated in the following sequence: Left superior pulmonary vein followed by left inferior pulmonary vein, followed by right inferior pulmonary vein and lastly right superior pulmonary vein. Phrenic nerve stimulation along with capture thresholds within the SVC and right superior pulmonary vein to identify the phrenic nerve proximity to the cryo- balloon. Pulmonary veins isolated and confirmed with entrance and exit block. Phrenic nerve integrity confirmed at the end of the procedure Diagnostic catheters for the high right atrium, His bundle, coronary sinus placed. LA and RA pressures recorded RA pressure: 13/3/8 LA pressure: 15/2/9 Diagnostic EP study with coronary sinus pacing and recording Baseline measurements: Sinus cycle length 868 ms, QRS 180 ms and QT interval 326 ms Sinus node recovery times at 600, 500 and, 400 ms were 860, 853 and 1074 ms AV node Wenckebach block 350 ms Venous sheaths were removed and hemostasis assured with a closure device. 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 Temperature was -42 degrees Cryoablation was turned off immediately Review of data revealed a less than 10 to 20% reduction in CMP amplitude followed by sudden loss of contraction followed by immediate cessation of ablation (double stop) At the end of the procedure phrenic nerve pacing revealed mild contraction of the diaphragm PROCEDURES PERFORMED Diagnostic EP study CS pacing and recording Left and right transseptal catheterization Catheter the mapping of the tachycardia Intracardiac echocardiography Pulmonary vein isolation with transseptal and comprehensive EPS, [id number]
--- NOTE | 2023-06-06 14:55 | P.PRLE ---
RE: Meena Coello Dear Gloria Robledo underwent pulm vein isolation for management of A-fib with RVR She had phrenic nerve paresis during ablation of the right inferior pulmonary v ein. Therefore only 78 seconds of cryoablation could be performed for this vein All the other veins were completely ablated. At the end of the procedure the phrenic nerve function had begun to recover. In addition her TSH is 6.0 which needs to be observed She will continue with anticoagulation If she has further episodes of atrial fibrillation then radiofrequency ablation can be considered after a few months once her phrenic nerve recovery is complete Thank you for entrusting me with the care of the patient Warm regards Sincerely Gabriele Muir
[2023-06-06] MEDS: ACETAMINOPHEN IV (For NPO) 1,000 MG in EMPTY BAG 1 BAG IVPB ONE (14:57)
[2023-06-06] MEDS: DEXAMETHASONE SOD PHOSPHATE 4 MG/ML 1 ML VIAL IV ONE (15:57)
[2023-06-06] MEDS: SODIUM CHLORIDE 0.9% 1,000 ML IV SCH (15:57)
[2023-06-06] MEDS: ONDANSETRON 4 MG/2 ML VIAL IVP ONE (15:57)
[2023-06-06] MEDS: LACTATED RINGERS 1,000 ML IV SCH (15:57)
[2023-06-06] MEDS: QUEtiapine 100 MG TAB PO SCH (21:08)
[2023-06-06] MEDS: lamoTRIgine 100 MG TAB PO SCH (21:08)
[2023-06-06] MEDS: ACETAMINOPHEN TAB 325 MG TAB PO PRN (22:30)
[2023-06-06] MEDS: FUROSEMIDE 10 MG/ML 2 ML VIAL IV ONE (23:20)
[2023-06-07] MEDS: IPRATROPIUM-ALBUTEROL 3 ML NEB INHALATION STA (00:49)
[2023-06-07] MEDS: PANTOPRAZOLE 40 MG TABLET PO SCH (05:14)
--- NOTE | 2023-06-07 07:55 | XR ---
EXAMINATION TYPE: XR chest 2V DATE OF EXAM: 06/06/2023 COMPARISON: 03/20/2023 TECHNIQUE: PA and lateral views submitted. HISTORY: Phrenic nerve paresis FINDINGS: There is elevated right hemidiaphragm with right perihilar and lower lobe infiltrate or atelectasis. No overt failure. Heart size normal and no overt failure. Osseous structures demonstrate hypertrophic and degenerative changes of the spine. Diffuse osteopenia and arthropathy of the shoulders. Mild ath erosclerotic change aorta. IMPRESSION: 1. Persistent elevated right hemidiaphragm which can be associated with phrenic nerve paresis. 2. Right perihilar and lower lobe consolidation may be on the basis of atelectasis. Correlate clinica lly to exclude underlying pneumonia. Follow-up to resolution recommended to exclude other etiologies.
[2023-06-07] MEDS: IPRATROPIUM-ALBUTEROL 3 ML NEB INHALATION SCH (08:38)
[2023-06-07] MEDS: lisinopriL 5 MG TAB PO SCH (08:51)
[2023-06-07] MEDS: RALOXIFENE 60 MG TAB PO SCH (08:51)
[2023-06-07] MEDS: CITALOPRAM HYDROBROMIDE 20 MG TAB PO SCH (08:51)
[2023-06-07] MEDS: METOPROLOL SUCCINATE (ER) 50 MG TAB.ER.24H PO SCH (08:51)
[2023-06-07] MEDS: ATORVASTATIN 80 MG TAB PO SCH (08:51)
[2023-06-07] MEDS: CHLORTHALIDONE 25 MG TAB PO SCH (08:51)
[2023-06-07] MEDS: RIVAROXABAN 20 MG TAB PO SCH (08:51)
[2023-06-07] MEDS: ASPIRIN 81 MG PO SCH (08:51)
--- NOTE | 2023-06-07 21:30 | P.CNPUL ---
History of Present Illness Consult date: 06/07/23 Reason for consult: hypoxemia History of present illness: I was asked to evaluate this patient for some ongoing hypoxemia. The patient was having paroxysmal atrial fibrillation with RVR with a heart rate above 200. The patient also has obesity and hypertension and her current body mass index is 37. Other comorbid conditions include hyperlipidemia, obstructive sleep apnea and history of asthma. This patient has had also previous history of lap band insertion. She was admitted for EP studies and ablation. The patient underwent a pulmonary vein isolation and the patient underwent cryoablation of the vein. The postop chest x-ray shows some elevation of the right hemidiaphragm which is worse compared to her baseline. I noted that the patient had encountered some phrenic nerve paresis during the ablation of the right inferior pulmonary vein.. No history of cough. No sputum production. No chest pain. Labs are all stable. The white cell count is at 6.8 with a hemoglobin 12.4, normal electrolytes, serum bicarb is at 27, LFTs are normal. No previous history of DVT or pulmonary embolism. I discussed the case with Dr. Alanis. During the procedure, the patient did encounter some phrenic nerve dysfunction and this was clearly observed by the rug backing stenciler. Noted the procedure was done under general anesthesia and the patient was intubated for approximately 2 hours. Postop, her pulse ox was in the order of 88%. Noted to have a resting pulse ox has been ranging between 96 and 98% preoperatively. She has been maintained on long-term anticoagulants with Eliquis. She also has a component of CHF with elevated left ventricular end-diastolic pressure. The patient was given a dose of Lasix. She was provided incentive spirometer. Review of Systems Constitutional: Reports as per HPI Eyes: denies as per HPI, denies blurred vision, denies bulging eye, denies decreased vision, denies diplopia, denies discharge, denies dry eye, denies irritation, denies itching, denies pain, denies photophobia, denies loss of peripheral vision, denies loss of vision, denies tunnel vision/blind spots Ears: deny: decreased hearing, ear discharge, earache, tinnitus Ears, nose, mouth and throat: Reports as per HPI Breasts: absent: as per HPI, change in shape, gynecomastia, masses, nipple discharge, pain, skin changes, swelling Cardiovascular: Reports as per HPI Respiratory: Reports as per HPI Gastrointestinal: Reports as per HPI Genitourinary: Reports as per HPI Menstruation: Reports as per HPI Musculoskeletal: Reports as per HPI Musculoskeletal: absent: ankle pain, ankle stiffness, ankle swelling, as per HPI, elbow pain, elbow stiffness, elbow swelling, foot pain, foot stiffness, foot swelling, hand pain, hand stiffness, hand swelling, hip pain, hip stiffness, hip swelling, knee pain, knee stiffness, knee swelling, shoulder pain, shoulder stiffness, shoulder swelling, wrist pain, wrist stiffness, wrist swelling Integumentary: Reports as per HPI Neurological: Reports as per HPI Psychiatric: Reports as per HPI Endocrine: Reports as per HPI Hematologic/Lymphatic: Reports as per HPI Allergic/Immunologic: Reports as per HPI Past Medical History Past Medical History: Atrial Fibrillation, Asthma, CVA/TIA, GERD/Reflux, Hyperlipidemia, Hypertension, Osteoarthritis (OA), Sleep Apnea/CPAP/BIPAP Additional Past Medical History / Comment(s): stroke 4-5 yrs ago no residuals. does not wear her cpap. CT for blood in urine.- no findings. ( 2 weeks ago ). See Dr Muir H&P History of Any Multi-Drug Resistant Organisms: None Reported Past Surgical History: Bariatric Surgery, Cholecystectomy Additional Past Surgical History / Comment(s): lap band 2015, colonoscopy. Past Anesthesia/Blood Transfusion Reactions: No Reported Reaction Smoking Status: Never smoker - Past Family History Mother Family Medical History: CVA/TIA Father Family Medical History: CVA/TIA, Diabetes Mellitus Brother(s) Family Medical History: Cancer, Diabetes Mellitus Additional Family Medical History / Comment(s): lung cancer Medications and Allergies Home Medications Medication Instructions Recorded Confirmed Type Aspirin 81 mg PO DAILY 07/18/13 06/06/23 History Citalopram Hydrobromide 20 mg PO DAILY 07/18/13 06/06/23 History [Citalopram HBr] Lisinopril 5 mg PO DAILY 07/18/13 06/06/23 History lamoTRIgine 100 mg PO HS 07/18/13 06/06/23 History QUEtiapine [SEROquel] 100 mg PO HS 10/08/20 06/06/23 History Pantoprazole Sodium [Protonix] 40 mg PO DAILY 10/13/20 06/06/23 History Rosuvastatin [Crestor] 40 mg PO DAILY 10/13/20 06/06/23 History Sucralfate [Carafate] 1 gm PO BID 10/13/20 06/06/23 History rOPINIRole HCL [Requip] 0.5 mg PO HS 10/13/20 06/06/23 History Chlorthalidone 25 mg PO DAILY 03/14/23 06/06/23 History Metoprolol Succinate [Toprol XL] 75 mg PO DAILY 03/14/23 06/06/23 History Raloxifene HCl 60 mg PO DAILY 03/14/23 06/06/23 History Rivaroxaban [Xarelto] 20 mg PO DAILY 03/14/23 06/06/23 History Allergies Allergy/AdvReac Type Severity Reaction Status Date / Time No Known Allergies Allergy Verified 06/01/23 11:50 Physical Exam Vitals: Vital Signs Temp Pulse Pulse Resp BP BP Pulse Ox 06/07/23 15:40 90 06/07/23 15:30 86 06/07/23 12:00 95 16 105/69 94 L 06/07/23 11:57 88 06/07/23 11:45 87 06/07/23 08:59 88 06/07/23 08:41 93 L 06/07/23 08:39 89 06/07/23 08:00 90 16 126/67 93 L 06/07/23 05:18 20 90 L 06/07/23 02:00 83 18 128/71 97 06/07/23 00:59 80 06/07/23 00:50 80 06/06/23 20:00 97.6 F 85 20 113/67 94 L 06/06/23 18:12 88 18 95 06/06/23 17:03 82 16 117/70 95 06/06/23 16:20 16 06/06/23 16:10 82 16 108/52 93 L 06/06/23 15:58 97.4 F L 77 16 113/58 88 L Intake and Output 06/07/23 06/07/23 06/07/23 06:59 14:59 22:59 Intake Total 236 Balance 236 Intake: Oral 236 Other: Voiding Method Toilet Toilet # Voids 2 Results - Laboratory Findings CBC and BMP: 06/06/23 09:45 06/06/23 09:45 ABG WBC 6.8 k/uL (3.8-10.6) 06/06/23 09:45 RBC 4.33 m/uL (3.80-5.40) 06/06/23 09:45 Hgb 12.4 gm/dL (11.4-16.0) 06/06/23 09:45 Hct 39.4 % (34.0-46.0) 06/06/23 09:45 MCV 91.0 fL (80.0-100.0) 06/06/23 09:45 MCH 28.8 pg (25.0-35.0) 06/06/23 09:45 MCHC 31.6 g/dL (31.0-37.0) 06/06/23 09:45 RDW 14.9 % (11.5-15.5) 06/06/23 09:45 Plt Count 346 k/uL (150-450) 06/06/23 09:45 MPV 7.4 06/06/23 09:45 Neutrophils % 52 % 06/06/23 09:45 Lymphocytes % 38 % 06/06/23 09:45 Monocytes % 4 % 06/06/23 09:45 Eosinophils % 4 % 06/06/23 09:45 Basophils % 1 % 06/06/23 09:45 Neutrophils # 3.5 k/uL (1.3-7.7) 06/06/23 09:45 Lymphocytes # 2.6 k/uL (1.0-4.8) 06/06/23 09:45 Monocytes # 0.3 k/uL (0-1.0) 06/06/23 09:45 Eosinophils # 0.3 k/uL (0-0.7) 06/06/23 09:45 Basophils # 0.1 k/uL (0-0.2) 06/06/23 09:45 Sodium 141 mmol/L (137-145) 06/06/23 09:45 Potassium 3.8 mmol/L (3.5-5.1) 06/06/23 09:45 Chloride 106 mmol/L (98-107) 06/06/23 09:45 Carbon Dioxide 27 mmol/L (22-30) 06/06/23 09:45 Anion Gap 8 mmol/L 06/06/23 09:45 BUN 16 mg/dL (7-17) 06/06/23 09:45 Creatinine 0.93 mg/dL (0.52-1.04) 06/06/23 09:45 Est GFR (CKD-EPI)AfAm 71 (>60 ml/min/1.73 sqM) 06/06/23 09:45 Est GFR (CKD-EPI)NonAf 62 (>60 ml/min/1.73 sqM) 06/06/23 09:45 Glucose 96 mg/dL (74-99) 06/06/23 09:45 Calcium 8.9 mg/dL (8.4-10.2) 06/06/23 09:45 Total Bilirubin 0.4 mg/dL (0.2-1.3) 06/06/23 09:45 AST 24 U/L (14-36) 06/06/23 09:45 ALT 20 U/L (4-34) 06/06/23 09:45 Alkaline Phosphatase 72 U/L (38-126) 06/06/23 09:45 Total Protein 6.7 g/dL (6.3-8.2) 06/06/23 09:45 Albumin 3.7 g/dL (3.5-5.0) 06/06/23 09:45 TSH 6.000 mIU/L (0.465-4.680) H 06/06/23 09:45 Abnormal lab findings: Abnormal Labs 06/06/23 09:45 TSH 6.000 H - Diagnostic Findings Chest x-ray: image reviewed Assessment and Plan Plan: Postop hypoxemia, multifactorial. The procedure which involved a proximal atrial fibrillation ablation utilizing cardiac cryotherapy was complicated by development of phrenic nerve dysfunction/injury with subsequent chest x-rays revealing some interval rise in elevation of the right hemidiaphragm. This, along with the general anesthesia and being intubated for 2 hours probably contributed to some pulmonary microatelectasis. Note that the patient also has a component of CHF with elevated left-ventricular end-diastolic pressures. I believe her postoperative hypoxemia is multifactorial. Current pulse ox is noted of 93 to 94% on room air. No dyspnea at rest. Paroxysmal A-fib post ablation utilizing cryotherapy Obesity, previous lap band History of obstructive sleep apnea and other classic CPAP therapy at this point Hypertension Hyperlipidemia History of CVA without any residual deficits Osteoarthritis Plan Discussed the case with cardiology Will provide oxygen therapy to maintain saturation above 90% Provide the patient is sinus parameter Monitor oxygenation Obtain a sniff test within the next 24 hours to evaluate the right hemidiaphragm Give the patient a dose of Lasix 40 mg IV push Continue with the metoprolol and anticoagulation with Eliquis Put the patient on bronchodilators Will continue to follow Obviously the patient will need an outpatient pulmonary function test to evaluate her baseline lung function and make further adjustments based on her progress. Typically, right hemidiaphragmatic paralysis could be transient and reversible. Will continue to follow.
[2023-06-07] MEDS: FUROSEMIDE 10 MG/ML 4 ML VIAL IV STA (21:33)
[2023-06-07 22:12] VITALS: RESP 18
[2023-06-08 08:47] VITALS: TEMP 98.1
--- NOTE | 2023-06-08 09:12 | FL ---
EXAMINATION TYPE: FL sniff test without CXR DATE OF EXAM: 06/08/2023 COMPARISON: NONE HISTORY: Evaluate right diaphragm post cryoablation TECHNIQUE: Fluoroscopy. FINDINGS: Sniff test was performed. There is elevation of the right hemidiaphragm with Paradoxical mo tion noted upon sniffing of the right hemidiaphragm suggesting right diaphragmatic paralysis. IMPRESSION: Findings suggest paralysis of the right hemidiaphragm.
[2023-06-08 12:17] VITALS: BP 115/73; PULSE 90
--- NOTE | 2023-06-08 12:18 | P.PN ---
Subjective Patient had mild cough increased chest markings and was short of breath with pulse ox of 88% at room air She also had sore throat no chest discomfort On examination her blood pressure was normal she was in sinus rhythm normal heart rates Crackles in both lungs bilaterally with diminished sounds at the right base consistent with paresis of the right phrenic nerve Groin site healed well I spoke to Dr. 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, despite low normal cryoablation temperatures during prior delivery Plan Lasix IV 1 more dose today Continue current medications and anticoagulation Incentive spirometry Continue observation and await pulmonary evaluation Objective - Vital Signs Vital signs: Vital Signs Temp 98.1 F 06/08/23 08:20 Pulse 90 06/08/23 12:11 Resp 18 06/08/23 12:11 BP 115/73 06/08/23 12:11 Pulse Ox 87 L 06/08/23 12:11 FiO2 Intake & Output 06/07/23 06/08/23 06/08/23 18:59 06:59 18:59 Intake Total 354 10 180 Output Total 1550 Balance 354 -1540 180 Weight 100 kg Intake: IV 10 0.9 10 Oral 354 180 Output: Urine 1550 Other: Voiding Method Toilet Toilet Toilet # Voids 1 - Labs CBC & Chem 7: 06/06/23 09:45 06/06/23 09:45
--- NOTE | 2023-06-08 12:28 | P.DS ---
Providers Date of admission: 06/07/23 11:01 Attending physician: Gabriele Muir Consults: 06/07/23 13:00 Consult Physician Routine Consulting Provider: Colin Grande Consult Reason/Comments: hypoxia at rest Do you want consulting provider notified?: Yes Primary care physician: [facility] Course: Patient is doing a lot better today She does not appear short of breath at rest She has mild breathlessness only upon walking Her pulse ox is 98% on room air She does not appear short of breath On examination heart sounds are normal and regular No rub Breath sounds are improved since yesterday She underwent a sniff test today which showed right diaphragmatic paralysis However at the end of her cryoablation procedure with phrenic nerve pacing subtle diaphragmatic contraction that was documented on fluoroscopy was noted Impression Symptomatic paroxysmal atrial fibrillation Status post PVI Right diaphragmatic paralysis with a subtle improvement at the end of the procedure with phrenic nerve pacing During cryoablation temperature at 30 seconds was -27 degrees and at 60 seconds it was 41 degrees She received only 78 seconds of cryoablation. 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 daily Continue anticoagulation with Xarelto Follow-up with Dr. Muir and with Dr. Grande Patient to go home today Patient Condition at Discharge: Stable Plan - Discharge Summary Discharge Rx Participant: No New Discharge Prescriptions: New Spironolactone 25 mg PO DAILY #90 tablet No Action Aspirin 81 mg PO DAILY lamoTRIgine 100 mg PO HS Lisinopril 5 mg PO DAILY Citalopram Hydrobromide [Citalopram HBr] 20 mg PO DAILY Sucralfate [Carafate] 1 gm PO BID Rivaroxaban [Xarelto] 20 mg PO DAILY Chlorthalidone 25 mg PO DAILY QUEtiapine [SEROquel] 100 mg PO HS Rosuvastatin [Crestor] 40 mg PO DAILY rOPINIRole HCL [Requip] 0.5 mg PO HS Pantoprazole Sodium [Protonix] 40 mg PO DAILY Metoprolol Succinate [Toprol XL] 75 mg PO DAILY Raloxifene HCl 60 mg PO DAILY Discharge Medication List Aspirin 81 mg PO DAILY 07/18/13 [History] Citalopram Hydrobromide [Citalopram HBr] 20 mg PO DAILY 07/18/13 [History] Lisinopril 5 mg PO DAILY 07/18/13 [History] lamoTRIgine 100 mg PO HS 07/18/13 [History] QUEtiapine [SEROquel] 100 mg PO HS 10/08/20 [History] Pantoprazole Sodium [Protonix] 40 mg PO DAILY 10/13/20 [History] Rosuvastatin [Crestor] 40 mg PO DAILY 10/13/20 [History] Sucralfate [Carafate] 1 gm PO BID 10/13/20 [History] rOPINIRole HCL [Requip] 0.5 mg PO HS 10/13/20 [History] Chlorthalidone 25 mg PO DAILY 03/14/23 [History] Metoprolol Succinate [Toprol XL] 75 mg PO DAILY 03/14/23 [History] Raloxifene HCl 60 mg PO DAILY 03/14/23 [History] Rivaroxaban [Xarelto] 20 mg PO DAILY 03/14/23 [History] Spironolactone 25 mg PO DAILY #90 tablet 06/08/23 [Rx] Follow up Appointment(s)/Referral(s): Gabriele Muir MD [STAFF PHYSICIAN] - 06/19/23 11:30 am
--- NOTE | 2023-06-08 14:45 | P.PN ---
Subjective Progress Note Date: 06/08/23 I was asked to evaluate this patient for some ongoing hypoxemia. The patient was having paroxysmal atrial fibrillation with RVR with a heart rate above 200. The patient also has obesity and hypertension and her current body mass index is 37. Other comorbid conditions include hyperlipidemia, obstructive sleep apnea and history of asthma. This patient has had also previous history of lap band insertion. She was admitted for EP studies and ablation. The patient underwent a pulmonary vein isolation and the patient underwent cryoablation of the vein. The postop chest x-ray shows some elevation of the right hemidiaphragm which is worse compared to her baseline. I noted that the patient had encountered some phrenic nerve paresis during the ablation of the right inferior pulmonary vein.. No history of cough. No sputum production. No chest pain. Labs are all stable. The white cell count is at 6.8 with a hemoglobin 12.4, normal electrolytes, serum bicarb is at 27, LFTs are normal. No previous history of DVT or pulmonary embolism. I discussed the case with Dr. Alanis. During the procedure, the patient did encounter some phrenic nerve dysfunction and this was clearly observed by the maintenance shop technician. Noted the procedure was done under general anesthesia and the patient was intubated for approximately 2 hours. Postop, her pulse ox was in the order of 88%. Noted to have a resting pulse ox has been ranging between 96 and 98% preoperatively. She has been maintained on long-term anticoagulants with Eliquis. She also has a component of CHF with elevated left ventricular end-diastolic pressure. The patient was given a dose of Lasix. She was provided incentive spirometer. On today's evaluation 06/08/2023, the patient's pulse ox 98% room air oxygen. She is feeling well. No specific complaints. No shortness of breath. The patient was given a dose of Lasix yesterday and the patient produced excellent normal urine output. The patient remains on Xarelto. Her cardiac rhythm is sinus. She is also on aspirin. Sniff test was done and the patient was found to have right hemidiaphragmatic paralysis. Objective - Vital Signs Vital signs: Vital Signs Temp 98.1 F 06/08/23 08:20 Pulse 91 06/08/23 08:57 Resp 18 06/08/23 08:57 BP 132/97 04/11/24 08:20 Pulse Ox 98 06/08/23 08:20 FiO2 Intake & Output 06/07/23 06/08/23 06/08/23 18:59 06:59 18:59 Intake Total 354 10 180 Output Total 1550 Balance 354 -1540 180 Weight 100 kg Intake: IV 10 0.9 10 Oral 354 180 Output: Urine 1550 Other: Voiding Method Toilet Toilet Toilet # Voids 1 - Exam The patient appeared well nourished and normally developed. Vital signs as documented. Head exam is unremarkable. No scleral icterus or corneal arcus noted. Neck is without jugular venous distension, thyromegaly, or carotid bru its. Carotid upstrokes are brisk bilaterally. Lungs are clear to auscultation and percussion. Diminished breath sounds right lung base cardiac exam reveals the PMI to be normally sized and situated. Rhythm is regular. First and second heart sounds normal. No murmurs, rubs or gallops. Abdominal exam reveals normal bowel sounds, no masses, no organomegaly and no aortic enlargement. Extremities are nonedematous and both femoral and pedal pulses are normal. Examination of the skin revealed no evidence of significant rashes, suspicious appearing nevi or other concerning lesions. Neurologically, the patient is awake and alert and the patient does not have any focal neurological deficit. Cranial nerves are essentially intact. - Labs CBC & Chem 7: 06/06/23 09:45 06/06/23 09:45 Assessment and Plan Plan: Postop hypoxemia, multifactorial. The procedure which involved a proximal atrial fibrillation ablation utilizing cardiac cryotherapy was complicated by development of phrenic nerve dysfunction/injury with subsequent chest x-rays revealing some interval rise in elevation of the right hemidiaphragm. This, along with the general anesthesia and being intubated for 2 hours probably contributed to some pulmonary microatelectasis. Note that the patient also has a component of CHF with elevated left-ventricular end-diastolic pressures. I believe her postoperative hypoxemia is multifactorial. Current pulse ox is noted of 98% on room air oxygen. Paroxysmal A-fib post ablation utilizing cryotherapy Obesity, previous lap band History of obstructive sleep apnea and other classic CPAP therapy at this point Hypertension Hyperlipidemia History of CVA without any residual deficits Osteoarthritis Plan Sniff test confirmed the presence of right hemidiaphragmatic paralysis Oxygenation is improved compared to yesterday and the patient has a pulse ox of 98% room air oxygen Provide the patient is incentive spirometer to be used also on outpatient basis Continue with the metoprolol and anticoagulation with Eliquis Will continue to follow on outpatient basis Obviously the patient will need an outpatient pulmonary function test to evaluate her baseline lung function and make further adjustments based on her progress. Typically, right hemidiaphragmatic paralysis could be transient and reversible. Will continue to follow.
== END 2023-06-08 13:19 | disposition home or self-care (01) ==
LOC: CATHEP 09:13 → 6NMEDSUR 13:56 → 3SCARD 14:35 → CATHEP 06-07 11:01 → INTOOBSV 06-07 11:01
PROVIDERS: ADMIT Internal Medicine Clinical Cardiac Electrophysiology; ATTEND Internal Medicine Clinical Cardiac Electrophysiology
DX: I48.0 Paroxysmal atrial fibrillation (principal); E66.9 Obesity, unspecified; E78.5 Hyperlipidemia, unspecified; I11.0 Hypertensive heart disease with heart failure; G47.33 Obstructive sleep apnea (adult) (pediatric); J45.909 Unspecified asthma, uncomplicated; I50.30 Unspecified diastolic (congestive) heart failure; K21.9 Gastro-esophageal reflux disease without esophagitis; Z86.73 Personal history of transient ischemic attack (TIA), and cerebral infarction without residual deficits; Z79.899 Other long term (current) drug therapy; Z79.82 Long term (current) use of aspirin; Z79.01 Long term (current) use of anticoagulants; Z68.37 Body mass index [BMI] 37.0-37.9, adult; Z98.84 Bariatric surgery status; Z82.3 Family history of stroke; Z83.3 Family history of diabetes mellitus; Z80.1 Family history of malignant neoplasm of trachea, bronchus and lung
CPT/HCPCS: 99285; 94640 ×2; 94760; 93656; 86900; 86901; 80053; 84443; 85025; 86850; 76000; 71046; G0378 ×2; C1894 ×2; C1769 ×3; C1760 ×2; C1730 ×2; C1759; C1893; C1733; C1766; J1940 ×2; J2001; J0131; Q9967; J1644

== ENCOUNTER 2023-10-02 16:53 | Emergency (ER) | payer MEDICARE ==
[2023-10-02] MEDS ORDERED: ONDANSETRON 4 MG/2 ML VIAL ONE (21:36)
[2023-10-02] MEDS ORDERED: MECLIZINE 25 MG TAB ONE (21:36)
[2023-10-02] MEDS ORDERED: SODIUM CHLORIDE 0.9% 1,000 ML BAG ONE (21:50)
[2023-10-02] MEDS ORDERED: METOCLOPRAMIDE 5 MG/ML 2 ML VIAL ONE (23:11)
--- NOTE | 2023-10-24 08:56 | CT ---
EXAM: CT Head Without Intravenous Contrast CLINICAL HISTORY: extreme dizziness, at times pt is unable to sit up on her own. TECHNIQUE: Axial computed tomographyimages of the head/brain without intravenous contrast. CTDI is 49.2 mGy and DLP is 1101.4 mGy-cm. This CT examwas performed using one or more of the following dose reduction techniques: automated exposure control, adjustment of the mAand/or kVaccording to patient size, and/or use of iterative reconstruction technique. COMPARISON: No relevant prior studies available. FINDINGS: Brain:Age-related cerebral volume loss. Periventricular and subcortical white matter hypoattenuation, consistent with chronic microangiopathy. No acute intracranial hemorrhage. No midline shift or mass effect. Ventricles:Unremarkable. No ventriculomegaly. Bones/joints:Unremarkable. No acute fracture. Soft tissues:Unremarkable. Sinuses:Unremarkable as visualized. No acute sinusitis. Mastoid air cells:Unremarkable as visualized. No mastoid effusion. IMPRESSION: No acute intracranial hemorrhage. No midline shift or mass effect. Radiologist: Amauri Marquez MD Electronically Signed: 10/03/23 00:14 Study ready at 22:37 and initial results transmitted at 00:14 [facility]
--- NOTE | 2023-11-15 10:10 | XR ---
EXAMINATION TYPE: XR chest 2V DATE OF EXAM: 10/02/2023 COMPARISON: Chest radiographs from 06/06/2023 TECHNIQUE: XR chest 2V Frontal and lateral views of the chest. CLINICAL INDICATION:Female, 73 years old with history of DIZZINESS; FINDINGS: Lungs/Pleura: There is no evidence of pleural effusion, focal consolidation, or pneumothorax. Right perihilar similar scarring and/or atelectasis. Chronic elevation the right hemidiaphragm. Pulmonary vascularity: Unremarkable. Heart/mediastinum: Cardiomediastinal silhouette is unremarkable. Musculoskeletal: No acute osseous pathology. IMPRESSION: 1. No acute cardiopulmonary disease/process. 2. Chronic elevation of the right hemidiaphragm which could be associated with phrenic nerve paresis . [facility], , 11/15/2023 10:07 AM
== END 2023-10-03 01:37 | disposition home or self-care (01) ==
LOC: EC 16:53
DX: R42 Dizziness and giddiness (principal)
CPT/HCPCS: 70450; 71046; 80053; 81003; 83735; 84484; 85025; 93005; 96361; 96374; 96375; 99284

== ENCOUNTER → 2024-02-24 | Outpatient (CLI) | payer MEDICARE ==
--- NOTE | 2024-02-24 13:01 | MR ---
EXAMINATION TYPE: MR brain wo/w con DATE OF EXAM: 02/24/2024 9:47 AM COMPARISON: 10/02/2023. CLINICAL INDICATION: Female, 73 years old with history of R41.0 DISORIENTATION, UNSPECIFIED; PHH, Mem ory loss, confusion TECHNIQUE: Multi planar, multi sequence imaging was performed through the brain including: T1, T2, In version recovery, susceptibility weighted imaging and gradient echo imaging and Diffusion weighted im aging. The patient was then given intravenous contrast and multi planar, T1 fat-saturation images wer e obtained. IV Contrast: 9 mL Gadobutrol FINDINGS: Susceptibility artifact in the anterior falciform ligament most suggestive of calcification s surrounding falx lipomas seen in T1 weighted imaging and CT. The soto-white junctions, ventricular system, basal cisterns appear unremarkable. Diffusion-weighted imaging shows no evidence of restricted diffusion to suggest acute/subacute infarct. Intracranial ar terial flow voids are maintained. Midline structures show no abnormality. Scattered foci of high T2 s ignal intensity are seen within the periventricular white matter. The susceptibility weighted images reveals microhemorrhage focus of blooming artifact in the left frontal lobe. After administration of gadolinium, no abnormal enhancement is seen. The bone marrow signal is within normal limits. Paranasal sinuses and mastoid air cells: No significant paranasal sinus disease. Visualized orbits: Bilateral aphakia IMPRESSION: 1. No evidence of intracranial mass, acute/subacute infarct, or abnormal enhancement. 2. Nonspecific white matter changes, likely related to small vessel ischemic disease. [facility], , 02/24/2024 12:58 PM
== END | disposition home or self-care (01) ==
LOC: RADMRIMAIN 08:45
PROVIDERS: ATTEND Family Medicine
DX: R41.3 Other amnesia (principal); R41.0 Disorientation, unspecified; R90.82 White matter disease, unspecified
CPT/HCPCS: 70553; A9585

== ENCOUNTER → 2024-08-07 | Outpatient (CLI) | payer MEDICARE ==
[2024-08-07 14:55] VITALS: BP 134/80; PULSE 80; RESP 16; TEMP 98.3
--- NOTE | 2024-08-07 15:50 | P.SLEEP ---
History of Present Illness DATE: 08/07/2024 CONSULTATION/NEW PATIENT EVALUATION HISTORY OF PRESENT ILLNESS/SLEEP-WAKE EVALUATION: 74-year-old lady had been e valuated in the sleep center for possible obstructive sleep apnea hypopnea syndrome. SLEEP SCHEDULE: Usually sleep schedule from 11 PM to 911 AM. FALLING ASLEEP: Sometimes patient has difficulties with falling asleep. DURING SLEEP: Patient snores and wakes up from sleep 3 times with nocturia. Positive history of grinding teeth, dry mouth, restless leg symptoms, sleep talking. No history of hypnogogical hallucinations, sleep paralysis, or cataplexy. DURING THE DAY/WAKE STATE: In the morning patient wake up tired, falling asleep during the day, has problems with memory, concentration, irritability. [place] sleepiness scale is significantly increased to 13. Patient takes nap at 2 PM. PAST MEDICAL HISTORY: Hypertension, mini stroke 5 years ago, asthma, sinuses problems, atrial fibrillation converted to normal sinus rhythm by ablation. PAST SURGICAL HISTORY: Lap band, cholecystectomy, bladder and bowel suspension. MEDICATIONS: Please see below. SOCIAL HISTORY: Please see below. FAMILY HISTORY: Please see below. REVIEW OF SYSTEMS: Snoring, multiple awakenings from sleep, sleepiness during the day. No fevers. No double vision. No recent chest pain. No shortness of leonard ath. No abdominal pain. No bleeding episodes. No blood in urine. No seizure episodes. PHYSICAL EXAMINATION: GENERAL: A pleasant patient without any distress. VITAL SIGNS: Please see below, weight 210 pounds, BMI 36.6. HEENT: PERRLA, EOMI. Evaluation of oropharynx showed tongue protrudes midline, low position of soft palate Mallampati 4, restriction of nasal breathing. NECK: Supple. No JVD. Thyroid is not palpable. 14.5 inches in circumference. LUNGS: Clear to percussion and to auscultation. Good air exchange. No wheezing or rhonchi. HEART: S1, S2 regular. No murmurs, gallops or rubs. ABDOMEN: Soft and nontender. Bowel sounds are present. No organomegaly appreciated. EXTREMITIES: No clubbing or cyanosis. EDUCATIONAL SPECIALIST: Awake, alert, and oriented x3. Cranial nerves 2 to 7 intact. There is no fasciculation or atrophy noted. No focal deficits observed. ASSESSMENT: 1. Snoring, multiple awakenings from sleep, extremely low position of soft palate Mallampati 4, history of obstructive sleep apnea diagnosed many years ago. Obstructive sleep apnea hypopnea syndrome. 2. Obesity, BMI 36.6. 3. Atrial fibrillation converted to normal sinus rhythm by ablation. 4. Asthma. 5 hypertension. 6 . Sinus problems. 7. Status post lap band. 8. Status post cholecystectomy. 9 . Status post bladder and bowel suspension. PLAN: 1. Polysomnography for evaluation of patient's breathing during sleep. 2. Following plan after reading sleep study. 3. Preferable position during sleep on the side. 4. No driving if patient feels any sleepiness. Patient is aware of civil and criminal liability for unsafe driving. 5. Sleep hygiene with regular sleep time for at least 7.5-8 hours. 6. Watching and losing weight. Thank you very much for referring this patient for consultation. Sincerely, Abhi Xavier MD, PhD, FAASM. Diplomat of [place] [employer], Sleep Medicine Board by [place] [employer] [place] [employer] [facility] [place] cc: Gloria Martinez DO Past Medical History Past Medical History: Atrial Fibrillation, Asthma, Hypertension, Sleep Apnea/CPAP/BIPAP Additional Past Medical History / Comment(s): stroke 4-5 yrs ago no residuals. does not wear her cpap. CT for blood in urine.- no findings. ( 2 weeks [address] ). [address] Muir H&P History of Any Multi-Drug Resistant Organisms: None Reported Past Surgical History: Bariatric Surgery, Cholecystectomy Additional Past Surgical History / Comment(s): lap band 2014 Past Anesthesia/Blood Transfusion Reactions: No Reported Reaction Past Psychological History: No Psychological Hx Reported Smoking Status: Never smoker, Unknown if ever smoked Past Alcohol Use History: None Reported Past Drug Use History: None Reported - Past Family History Mother Family Medical History: CVA/TIA Father Family Medical History: CVA/TIA, Diabetes Mellitus Brother(s) Family Medical History: Cancer, Diabetes Mellitus Additional Family Medical History / Comment(s): lung cancer Medications and Allergies Home Medications Medication Instructions Recorded Confirmed Type Aspirin 81 mg PO DAILY 07/18/13 08/07/24 History Citalopram Hydrobromide 20 mg PO DAILY 07/18/13 08/07/24 History [Citalopram HBr] Lisinopril 5 mg PO DAILY 07/18/13 08/07/24 History lamoTRIgine 100 mg PO HS 07/18/13 08/07/24 History QUEtiapine [SEROquel] 100 mg PO HS 10/08/20 06/06/23 History Pantoprazole Sodium [Protonix] 40 mg PO DAILY 10/13/20 08/07/24 History Rosuvastatin [Crestor] 40 mg PO DAILY 10/13/20 08/07/24 History Sucralfate [Carafate] 1 gm PO BID 10/13/20 06/06/23 History rOPINIRole HCL [Requip] 0.5 mg PO HS 10/13/20 08/07/24 History Chlorthalidone 25 mg PO DAILY 03/14/23 08/07/24 History Metoprolol Succinate [Toprol XL] 75 mg PO DAILY 03/14/23 08/07/24 History Raloxifene HCl 60 mg PO DAILY 03/14/23 08/07/24 History Rivaroxaban [Xarelto] 20 mg PO DAILY 03/14/23 08/07/24 History Spironolactone 25 mg PO DAILY #90 tablet 06/08/23 08/07/24 Rx Montelukast [Singulair] 10 mg PO DAILY 08/07/24 08/07/24 History Potassium Chloride [Potassium 20 meq PO DAILY 08/07/24 08/07/24 History Chloride ER (K-Dur GEQ)] Allergies Allergy/AdvReac Type Severity Reaction Status Date / Time No Known Allergies Allergy Verified 06/01/23 11:50 Physical Exam Vitals: Vital Signs Temp Pulse Resp BP Pulse Ox 08/07/24 14:53 98.3 F 80 16 134/80 97 Intake and Output 08/07/24 08/07/24 08/07/24 06:59 14:59 22:59 Other: Weight 95.254 kg Sleep Note - Sleep Data ESS Total: 13 - Sleep Note Sleep Note: Temperature: 98.3 F Pulse Rate: 80 Respiratory Rate: 16 Blood Pressure: 134/80 SpO2: 97 Height: 5 ft 3.5 in Weight: 95.254 kg BMI: Neck Circumference: 14.5
== END ==
LOC: 3 N SLEEP 14:09
PROVIDERS: ATTEND Internal Medicine
DX: G47.33 Obstructive sleep apnea (adult) (pediatric) (principal); E66.9 Obesity, unspecified; I48.91 Unspecified atrial fibrillation; J45.909 Unspecified asthma, uncomplicated; I10 Essential (primary) hypertension; J34.9 Unspecified disorder of nose and nasal sinuses; Z90.49 Acquired absence of other specified parts of digestive tract; Z98.890 Other specified postprocedural states; Z68.36 Body mass index [BMI] 36.0-36.9, adult; Z98.84 Bariatric surgery status
CPT/HCPCS: 99211

== ENCOUNTER 2024-09-07 19:45 | Outpatient (CLI) | payer MEDICARE ==
--- NOTE | 2024-09-18 12:37 | P.PCN ---
Description of Procedure: POLYSOMNOGRAPHY REPORT PROCEDURE(S)/DATE(S): Polysomnography 09/07/2024 CLINICAL: Patient has been seen in the sleep center for evaluation of obstructive sleep apnea-hypopnea syndrome. Please see my consultation. Sleep study has been done for evaluation of patient breathing during the sleep. PROCEDURE: The standard montage for clinical polysomnography included the electroencephalogram, the electrooculogram, the mentalis surface electromyography and Lead II cardiography. The respiratory battery consisted of measurements of nasal/buccal air flow, pressure transducer measurements from nose, thoracic and/or abdominal effort and intercostal surface electromyography. Video monitoring has been done to check for any parasomnia events. Nocturnal oxyhemoglobin saturations were obtained by finger oximetry. Step-sharma titration with positive airway pressure was utilized to control the respiratory events, if necessary. RESULTS: During the diagnostic sleep study sleep efficiency was decreased to 67.1%. Latency to sleep onset was prolonged with 55.5 min. Sleep architecture showed stage NI was short 2.6%, Delta sleep was absent 0%, REM sleep was short 13.8%. Respiratory channel showed 14 obstructive apneas, 0 mixed apneas, 0 central apneas, 47 hypopneas with lowest oxygen level 60%. Total apnea hypopnea index was 12.9. Heart rate was in the range between 56 and 70, average 63. EMG showed 13.8 periodic limb movements per hour with 0.8 micro-arousals per hour. IMPRESSIONS: 1. Obstructive sleep apnea hypopnea syndrome patient presents with symptoms of excessive daytime sleepiness [place] Sleepiness Scale is 10. 2. Mild periodic limb movements have been documented. 3. Hypertension. Please see other impressions from consultation PLAN: 1. The patient will have AutoPAP treatment for correction of respiratory abnormalities during the sleep. 2. Losing weight program. 3. Sleep hygiene with regular time in bed for at least 7-1/2 hours. 4. No driving if feeling sleepiness. 5. Please check iron profile including ferritin level. Low level of iron may increase the risk for periodic limb movements. 6. I will see patient for follow-up visit to evaluate clinical response on treatment, compliance with treatment and [place] adjustments related to mask fitting pressure and humidification. Thank you very much for allowing me to participate in the management of your patient. Sincerely, Abhi Xavier MD, PhD, FAASM. Diplomat of [place] [employer], Sleep Medicine Board by [place] [employer] Microbiology [facility] [place] cc: Gloria Martinez DO
== END 2024-09-08 06:00 | disposition home or self-care (01) ==
LOC: 3 N SLEEP 19:45
PROVIDERS: ATTEND Internal Medicine
DX: G47.33 Obstructive sleep apnea (adult) (pediatric) (principal); G47.61 Periodic limb movement disorder; I10 Essential (primary) hypertension
CPT/HCPCS: 95810